=== PATIENT | female | born 1945 | race Caucasian/White ===

== ENCOUNTER → 2022-10-26 13:34 | Outpatient (CLI) | payer MEDICARE, SELFPAY ==
--- NOTE | ~2022-10-26 | CT_ITS ---
Non-contrast CT scan of the Abdomen and Pelvis Clinical indication: Abdominal pain Technique: 2.5 mm axial scans were obtained through the abdomen and pelvis without intravenous or or al contrast. Dose reduction technique was used on this scan by utilizing automated exposure control a nd iterative reconstruction technique. The dose-length product (DLP) was 997.49 mGy-cm. Findings: Images through the lung bases reveal 5 mm noncalcified left basilar pulmonary nodule (axia l image 23). There is an additional 3 mm left lower lobe pulmonary nodule (axial image 15).. There is no evidence of renal or ureteral calculi. The kidneys and the ureters are nondilated. The liver, spleen, pancreas, gallbladder, and adrenals appear normal. There are atherosclerotic calci fications of the aorta. There is no evidence of bowel obstruction. Images through the pelvis are degraded by streak artifact from bilateral hip arthroplasty. No gross p elvic abnormality seen. No ascites evident. Impression: Subcentimeter pulmonary nodules at the left lung base, as detailed above. According to Fleischner Soc iety criteria, for a low-risk patient, no further follow-up required. For a high-risk patient, consid er 12 month follow-up CT. No other significant findings. Reviewed, dictated and finalized at location . Impression: Subcentimeter pulmonary nodules at the left lung base, as detailed above. Accor ding to Fleischner Society criteria, for a low-risk patient, no further follow- up required. For a high-risk patient, consider 12 month follow-up CT. No other significant findings.
== END ==
PROVIDERS: PCP Internal Medicine; Visit Provider Internal Medicine
DX: R10.9 Unspecified abdominal pain (principal)
CPT/HCPCS: 74176

== ENCOUNTER 2024-04-29 11:22 | Emergency (ER) | payer MEDICARE, SELFPAY ==
[2024-04-29 11:38] VITALS: BP 150/80; PULSE 104; RESP 16; TEMP 37.7; O2SAT 97
--- NOTE | 2024-04-29 11:41 | ED_ITS ---
HPI - URI/Sore Throat General Chief Complaint: Upper Respiratory Infection Stated Complaint: HEADACHE/COUGH/FEVER Time Seen by Provider: 04/29/24 11:45 Source: patient Mode of arrival: ambulatory Limitations: no limitations History of Present Illness HPI Narrative: Maci is a 78-year-old female patient presenting to the clinic today with complaints of headache, cough, fever, and mild shortness of breath. She reports symptoms started 2 days ago. States fever has been highest 102. Denies any chest pain. No known sick contacts but has been going to a lot of basketball games. MD elicited complaint: cough, rhinorrhea, nasal congestion and other (Headache) Related Data Home Medications ?Medication ?Instructions ?Recorded ?Confirmed ?Last Taken ?Type glimepiride 1 mg tablet mg 04/29/24 Unknown History lisinopril 20 tablet 04/29/24 Unknown History mg-hydrochlorothiazide 12.5 mg tablet metformin 500 mg tablet mg 04/29/24 Unknown History pravastatin 40 mg tablet mg 04/29/24 Unknown History Allergies Allergy/AdvReac Type Severity Reaction Status Date / Time Penicillins Allergy Mild Verified 04/24/10 09:07 Sulfa (Sulfonamide Allergy Verified 01/07/11 13:10 Antibiotics) Review of Systems Review of Systems: Pertinent positives per HPI. Patient denies any rash, visual changes, dizziness, chest pain, palpitations, nausea, vomiting, diarrhea, constipation, abdominal pain, or any urinary issues. PMFSH Comments At the time of my signature, I reviewed and agree with the nursing past medical, surgical, social, and family history. There is no relevant family history pertinent to the patient complaint. Exam Narrative: General: Well-developed, well nourished, in no apparent distress Head: Normocephalic, atraumatic Eyes: Pupils equally round and reactive to light bilaterally, EOM intact, sclera and conjunctive clear, no discharge, lids normal Ears: TMs intact and clear, ear canals clear, no drainage, grossly hearing normal. Nose: Nares patent, clear nasal discharge, no inflammation, no sinus tenderness. Mouth: Oral pharynx without lesions or masses, good dentition, MMM. Postnasal drip Neck: Supple, trachea midline, no enlargement of anterior or posterior cervical nodes, no thyroid masses or goiter palpable. Cardio: Regular rate and rhythm, s1 and s2 normal, no murmur appreciated. Resp: Clear to auscultation bilaterally, no rhonchi, rales, wheezing or rubs Course Course Emergency Course: Portions of this record may have been created with voice recognition software. Level of Care: Express Care Visit Vital Signs Vital signs: Vital Signs Temperature 37.7 C H 04/29/24 11:38 Pulse Rate 104 H 04/29/24 11:38 Respiratory Rate 16 04/29/24 11:38 Blood Pressure 150/80 H 04/29/24 11:38 Pulse Oximetry 97 04/29/24 11:38 Temperature 37.7 C H 04/29/24 11:38 Pulse Rate 104 H 04/29/24 11:38 Respiratory Rate 16 04/29/24 11:38 Blood Pressure 150/80 H 04/29/24 11:38 Pulse Oximetry 97 04/29/24 11:38 Vital signs reviewed MDM - URI/Sore Throat MDM Narrative Medical decision making narrative: At the time of visit patient is resting comfortably on the exam table. Patient appears to be nontoxic. Labs: COVID test was positive in the clinic today. Plan: Patient has COVID. Supportive measures were discussed with the patient and they voiced understanding discharge instructions and agrees to treatment plan. Return precautions reviewed Differential Diagnosis Differential diagnosis: Likely upper respiratory infection, otitis media, sinusitis, viral infection, bronchitis, influenza, pharyngitis and other (COVID) Discharge Plan Discharge Clinical Impression: COVID-19 Patient Disposition: Home, Self-Care Condition: Stable Instructions: Antibiotic Form, How to Recover from COVID-19 at Home (ED) Additional Instructions: COVID testing is positive in the clinic today. Take medications as prescribed-albuterol inhaler May take Coricidin HBP for cold/flu symptoms Increase fluids and stay well hydrated Tylenol/motrin for pain/fever Flonase and OTC antihistamines as directed Vicks vapor rub to open sinuses Sinus rinses for congestion Cepacol spray, cough drops, throat lozenges, warm tea with honey/lemon, gargle salt water to soothe throat BRAT diet for diarrhea Clear liquids x 24 hours then advance as tolerated for nausea/vomiting Go to the ED if you develop a worsening in your condition- high fever not controlled by Tylenol or Motrin, dehydration, weakness, lethargy, shortness of breath, or chest pain. Follow up with your PCP in 3-5 days if symptoms persist. You are considered contagious until you are fever free for 24 hours without the use of Tylenol or Motrin and your symptoms are improving. Fever free is considered 100.3? F or less. Patient Language: Kiswahili Prescriptions: New albuterol sulfate 90 mcg/actuation HFA aerosol inhaler 2 puff inhalation Q4-6H PRN (Reason: shortness of breath or wheezing) 30 Days Qty: 8.5 0RF No Action metformin 500 mg tablet lisinopril-hydrochlorothiazide 20-12.5 mg tablet pravastatin 40 mg tablet glimepiride 1 mg tablet Follow-up/Referrals: Addison,Garth Carpenter MD [Primary Care Provider] - Time of Disposition: 11:45 Quality NIHSS Nursing Documentation ED NIHSS nursing documentation: reviewed/agree
[2024-04-29 12:05] LABS: EDCOVIDSCREEN Positive (Negative)
== END 2024-04-29 11:53 | disposition home or self-care (01) ==
PROVIDERS: Emergency Provider Nurse Practitioner Family; PCP Internal Medicine
DX: U07.1 COVID-19 (principal)
CPT/HCPCS: 87426; 99203; G0463